=== PATIENT | male | born 1995 | race Two or more races ===

== ENCOUNTER 2017-11-14 18:45 | Emergency (ER) | payer SELFPAY ==
[~2017-11-14] VITALS: Ht 167.6 cm; Wt 65.8 kg
[2017-11-14 19:52] VITALS: BP 125/48
== END 2017-11-14 21:00 | disposition left against medical advice (07) ==
LOC: ER 18:45
DX: R07.89 Other chest pain (principal); W19.XXXA Unspecified fall, initial encounter; Y92.89 Other specified places as the place of occurrence of the external cause; Y93.89 Activity, other specified; Y99.8 Other external cause status; Z53.21 Procedure and treatment not carried out due to patient leaving prior to being seen by health care provider
CPT/HCPCS: 71101